=== PATIENT | female | born 1950 | race Caucasian/White ===

== ENCOUNTER → 2016-08-01 | Outpatient (CLI) | payer MEDICARE ==
--- NOTE | 2016-08-01 09:38 | BD ---
EXAMINATION TYPE: MG DEXA axial skeleton. DATE OF EXAM: 08/01/2016 8:11 AM COMPARISON: 03.20.2012 DEXA bone scan. CLINICAL HISTORY: M81.0 OSTEOPOROSIS, Z79.89 Height: 61 Weight: 131 FRAX RISK QUESTIONS: Alcohol (3 or more units per day): NO Family History (Parent hip fracture): NO Glucocorticoids (More than 3mos): NO (Ex: prednisone, prednisolone, methylprednisolone, dexamethasone, and hydrocortisone). History of Fracture in Adulthood: YES Secondary Osteoporosis: NO 1. Type 1 Diabetes: NO 2. Hyperthyroidism: NO 3. Menopause before 45: NO 4. Malnutrition: NO 5. Chronic liver disease: NO Rheumatoid Arthritis: NO Current Tobacco Use: NO RISK FACTORS HISTORY OF: Other Fractures since Age 49: BOTH FEET, 1 RIB When: > 49 YRS OLD Family History of Osteoporosis: NO Smoke tobacco: NO Drink Alcohol: NO Active: YES Diet low in dairy products/other sources of calcium: NO Postmenopausal woman: AT 46 YRS OLD Take estrogen and/or progesterone medications: NONE NOW, PREMPRO AGES [age] How lon YRS Lost more than 2 inches in height since high school: NO Adrenal Insufficiency: NO MEDICATIONS: Osteoporosis Medications: YES, EVISTA How Lon Additional Medications: CALCIUM AND VIT D, BI-STYLIC Additional History: NONE TO NOTE EXAM MEASUREMENTS: Bone mineral densitometry was performed using the [employer] System. Bone mineral density as measured about the Lumbar spine is: ----- L1-L4(G/cm2): 1.126 T Score Values are as follows: ----- L1: -0.2 ----- L2: - 0.1 ----- L3: -0.1 ----- L4: -1.4 ----- L1-L4: -0.5 Bone mineral density has: Increased 1.9% since study of: 03.20.2012 Bone mineral density about the R hip (g/cm2): 0.819 Bone mineral density about the L hip (g/cm2): 0.824 T Score values are as follows: -----R Neck: -1.8 -----L Neck: -2.0 -----R Intertrochanter: -1.7 -----L Intertrochanter: -1.5 Bone mineral density has: Increased 2.6% since study of: 03.20.2012 FRAX %'S: 18.0% CHANCE OF A MAJOR OSTEOPOROTIC FX AND A 2.9% CHANCE OF A HIP FX....PROBABILITY OF FX IN 10/YRS TIME IMPRESSION: Osteopenia (T Score between -2.5 and -1 as noted by T score values in the left hip is redemonstrated. Bone density is slightly increased from prior study. There remains slightly increased risk of fractu re and the patient may be considered for treatment. Re-Screen 1-2 years. NOTE: T-SCORE=SD OF THE YOUNG ADULT MEAN.
--- NOTE | 2016-08-01 11:03 | MM ---
Reason for exam: screening (asymptomatic). Last mammogram was performed 4 years and 11 months ago. History: Patient is postmenopausal. Took estrogen for 9 years beginning at age 46. Took progesterone for 1 month beginning at age 55. Physical Findings: A clinical breast exam by your physician is recommended on an annual basis and results should be correlated with mammographic findings. MG Screening Mammo w CAD Bilateral CC and MLO view(s) were taken. Prior study comparison: May 28, 2014, mammogram, performed at [facility]. September 09, 2011, bilateral digital screening mammo w/CAD. The breast tissue is heterogeneously dense. This may lower the sensitivity of mammography. Finding: There are typically benign vascular and round calcifications in both breasts. There is no discrete abnormality. ASSESSMENT: Benign, BI-RAD 2 RECOMMENDATION: Routine screening mammogram of both breasts in 1 year.
== END | disposition home or self-care (01) ==
LOC: RADMAMWWP 07:29
PROVIDERS: ATTEND Internal Medicine
DX: Z12.31 Encounter for screening mammogram for malignant neoplasm of breast (principal); M85.80 Other specified disorders of bone density and structure, unspecified site; Z79.899 Other long term (current) drug therapy
CPT/HCPCS: 77080; G0202

== ENCOUNTER → 2017-08-22 | Outpatient (CLI) | payer MEDICARE, MEDICAID ==
--- NOTE | 2017-08-23 12:01 | MM ---
Reason for exam: screening (asymptomatic). Last mammogram was performed 1 year and 1 month ago. History: Patient is postmenopausal. Took estrogen for 9 years beginning at age 46. Took progesterone for 1 month beginning at age 55. Physical Findings: A clinical breast exam by your physician is recommended on an annual basis and results should be correlated with mammographic findings. MG 3D Screening Mammo W/Cad Bilateral CC and MLO view(s) were taken. Prior study comparison: August 01, 2016, bilateral MG screening mammo w CAD. May 28, 2014, mammogram, performed at [facility]. The breast tissue is heterogeneously dense. This may lower the sensitivity of mammography. There are typically benign round, vascular calcifications in both breasts. There is no discrete abnormality. ASSESSMENT: Benign, BI-RAD 2 RECOMMENDATION: Routine screening mammogram of both breasts in 1 year.
== END | disposition home or self-care (01) ==
LOC: RADMAMWWP 07:46
PROVIDERS: ATTEND Internal Medicine
DX: Z12.31 Encounter for screening mammogram for malignant neoplasm of breast (principal)
CPT/HCPCS: 77063; 77067

== ENCOUNTER → 2018-08-30 | Outpatient (CLI) | payer MEDICARE, MEDICAID ==
--- NOTE | 2018-08-30 10:05 | XR ---
EXAMINATION TYPE: XR pelvis AP view DATE OF EXAM: 08/30/2018 COMPARISON: None HISTORY: M 25.551 TECHNIQUE: AP pelvis FINDINGS: Femoral heads articulate with the acetabulum. Sacroiliac joints are normal. Symphysis pubis is normal. No acute fractures are evident. Normal bowel gas is present. IMPRESSION: 1. Normal AP pelvis.
--- NOTE | 2018-08-30 10:06 | XR ---
EXAMINATION TYPE: XR Hip Complete RT DATE OF EXAM: 08/30/2018 COMPARISON: None HISTORY: M 25.551 TECHNIQUE: 2 view right hip FINDINGS: Femoral head articulates with the acetabulum. No acute fractures evident. Joint spaces pres erved. IMPRESSION: 1. Normal right hip
--- NOTE | 2018-08-30 10:25 | BD ---
EXAMINATION TYPE: Axial Bone Density DATE OF EXAM: 08/30/2018 COMPARISON: 08/01/2016 CLINICAL HISTORY: Osteoporosis. Postmenopausal female. Height: 62 Weight: 135 FRAX RISK QUESTIONS: Alcohol (3 or more units per day): no Family History (Parent hip fracture): no Glucocorticoids (More than 3mos): no (Ex: prednisone, prednisolone, methylprednisolone, dexamethasone, and hydrocortisone). History of Fracture in Adulthood: yes Secondary Osteoporosis: 1. Type 1 Diabetes: no 2. Hyperthyroidism: no 3. Menopause before 45: no 4. Malnutrition: no 5. Chronic liver disease: no Rheumatoid Arthritis: no Current Tobacco Use: no RISK FACTORS HISTORY OF: Family History of Osteoporosis: no Active: yes Diet low in dairy products/other sources of calcium: no Postmenopausal woman: yes Take estrogen and/or progesterone medications: not now How long: Estrogen about 9 years Lost more than 2 inches in height since high school: no Frequent falls: no Poor Health: no Hyperparathyroidism: no Adrenal Insufficiency: no MEDICATIONS: Prednisone or other steroids: no Thyroid Medications: no Osteoporosis Medications:yes Which medication: Evista How Long: about 15 years Additional Medications: blood pressure med, cholesterol med, calcium & Vitamin D Additional History: erosive osteoarthritis EXAM MEASUREMENTS: Bone mineral densitometry was performed using the [employer] System. Bone mineral density as measured about the Lumbar spine is: ----- L1-L4(G/cm2): 1.060 T Score Values are as follows: ----- L2: -0.8 ----- L3: -0.7 ----- L4: -1.1 ----- L1-L4: -1.0 Bone mineral density has: Decreased -3.5% since study of: 08/01/2016 Bone mineral density about the R hip (g/cm2): 0.812 Bone mineral density about the L hip (g/cm2): 0.751 T Score values are as follows: -----R Neck: -1.6 -----L Neck: -2.1 -----R Total: -1.1 -----L Total: -1.6 Bone mineral density has: Increased 1.8% since study of: 08/01/2016 IMPRESSION: Osteopenia (T Score between -2.5 and -1). There is slightly increased risk of fracture and the patient may be considered for treatment. Re-Screen 2-5 years. NOTE: T-SCORE=SD OF THE YOUNG ADULT MEAN.
--- NOTE | 2018-09-04 10:31 | MM ---
Reason for exam: screening (asymptomatic). Last mammogram was performed 1 year ago. History: Patient is postmenopausal. Took estrogen for 9 years beginning at age 46. Took progesterone for 1 month beginning at age 55. Physical Findings: A clinical breast exam by your physician is recommended on an annual basis and results should be correlated with mammographic findings. MG 3D Screening Mammo W/Cad Bilateral CC and MLO view(s) were taken. Prior study comparison: August 22, 2017, bilateral MG 3d screening mammo w/cad. August 01, 2016, bilateral MG screening mammo w CAD. The breast tissue is heterogeneously dense. This may lower the sensitivity of mammography. No significant changes when compared with prior studies. ASSESSMENT: Benign, BI-RAD 2 RECOMMENDATION: Routine screening mammogram of both breasts in 1 year.
== END | disposition home or self-care (01) ==
LOC: RADMAMWWP 08:59
PROVIDERS: ATTEND Internal Medicine
DX: Z12.31 Encounter for screening mammogram for malignant neoplasm of breast (principal); M85.851 Other specified disorders of bone density and structure, right thigh; M85.852 Other specified disorders of bone density and structure, left thigh; M85.88 Other specified disorders of bone density and structure, other site; M25.551 Pain in right hip
CPT/HCPCS: 72170; 73502; 77063; 77067; 77080